=== PATIENT | female | born 1960 | race Two or more races ===

== ENCOUNTER 2020-03-02 07:13 | Day surgery (SDC) | payer MEDICAID ==
[~2020-03-02] VITALS: Ht 152.4 cm; Wt 112.0 kg
[~2020-03-02 07:13] MED LIST: ALBUAER3 IN; ASPI-543 PO; ATO40T PO; CARV3.1240 PO; EMPA1TAB PO; SACU1TAB PO; TRIA75TA55 PO
[2020-03-02] MEDS ORDERED: HEPARIN SODIUM (PORCINE) 5000 UNITS/ML 1ML VIAL ONE (09:49)
[2020-03-02] MEDS ORDERED: MIDAZOLAM HCL 1MG/1ML-2 ML VIAL ONE (09:49)
[2020-03-02] MEDS ORDERED: fentaNYL CITRATE 100 MCG/2 ML VL ONE (09:49)
[2020-03-02] MEDS ORDERED: VERAPAMIL 2.5MG/ML INJ 2ML VIAL IV ONE (09:49)
[2020-03-02] MEDS ORDERED: ANGIOMAX 250 MG VIAL IV ONE (09:49)
[2020-03-02] MEDS ORDERED: SODIUM CHL 0.9% 0 ML ONE (09:49)
[2020-03-02] MEDS ORDERED: LIDOCAINE 2%HCL (LOCAL ANESTH.) INJ 20ML MDV ONE (09:50)
[2020-03-02] MEDS ORDERED: ONDANSETRON HCL 4 MG/2 ML VIAL IV PRN (10:45)
[2020-03-02] MEDS ORDERED: ACETAMINOPHEN 500 MG TAB PO PRN (10:45)
[2020-03-02] MEDS ORDERED: HYDROcodone-ACET 5/325MG TAB PO PRN (10:45)
== END 2020-03-02 13:37 | disposition home or self-care (01) ==
LOC: CATH 07:13
PROVIDERS: ATTEND Internal Medicine
DX: I25.10 Atherosclerotic heart disease of native coronary artery without angina pectoris (principal); I10 Essential (primary) hypertension; E78.5 Hyperlipidemia, unspecified; E11.9 Type 2 diabetes mellitus without complications; E66.9 Obesity, unspecified; Z88.0 Allergy status to penicillin; Z20.828 Contact with and (suspected) exposure to other viral communicable diseases; Z98.890 Other specified postprocedural states; Z87.891 Personal history of nicotine dependence; Z79.82 Long term (current) use of aspirin; Z79.84 Long term (current) use of oral hypoglycemic drugs; Z79.899 Other long term (current) drug therapy; Z68.42 Body mass index [BMI] 45.0-49.9, adult
CPT/HCPCS: 93454; C1769; C1887; C1894; J1644; J2250; J3010; U0003; 99152; 99153